=== PATIENT | female | born 2000 | race Hispanic/Latino ===

== ENCOUNTER 2021-03-19 08:59 | Emergency (ER) | payer MEDICAID ==
[~2021-03-19] VITALS: Ht 154.9 cm; Wt 50.8 kg
[2021-03-19] MEDS ORDERED: DIPH1POW20 PO (12:39)
[2021-03-19 12:55] VITALS: BP 125/74
== END 2021-03-19 12:56 | disposition home or self-care (01) ==
LOC: EDH 10:20
DX: J06.9 Acute upper respiratory infection, unspecified (principal); Z20.822 Contact with and (suspected) exposure to COVID-19; Z79.899 Other long term (current) drug therapy
CPT/HCPCS: 87426; 87635; 87804 ×2; 87880; 99283; C9803

== ENCOUNTER 2022-05-13 12:23 | Emergency (ER) | payer MEDICAID ==
[~2022-05-13] VITALS: Ht 154.9 cm; Wt 54.4 kg
[~2022-05-13 12:23] MED LIST: DIPH1POW20 PO
[2022-05-13] MEDS ORDERED: LIDOCAINE HCL 1% 20 ML VIAL INJ SCH (13:00)
[2022-05-13] MEDS ORDERED: IBUPROFEN 600 MG TABLET PO ONE (13:30)
[2022-05-13] MEDS ORDERED: LIDOCAINE HCL 1% 10 ML VIAL ONE (14:42)
[2022-05-13] MEDS ORDERED: DIPH,PERTUSS(ACELL),TET VAC/PF 0.5 ML VIAL IM ONE (15:30)
[2022-05-13] MEDS ORDERED: TETANUS/DIPHTHERIA TOXOID [ADULT] 0.5 ML VIAL IM ONE (15:39)
[2022-05-13 16:05] VITALS: BP 128/71
== END 2022-05-13 15:33 | disposition home or self-care (01) ==
LOC: EDH 12:23
DX: S61.212A Laceration without foreign body of right middle finger without damage to nail, initial encounter (principal); X58.XXXA Exposure to other specified factors, initial encounter; Y93.89 Activity, other specified; Y92.89 Other specified places as the place of occurrence of the external cause; Y99.8 Other external cause status
CPT/HCPCS: 99283; 90714; 73120; 90471; 12001; J3490; 90715

== ENCOUNTER 2022-05-22 12:31 | Emergency (ER) | payer MEDICAID ==
[~2022-05-22] VITALS: Ht 154.9 cm; Wt 54.4 kg
[2022-05-22 13:37] VITALS: BP 122/78
== END 2022-05-22 13:41 | disposition home or self-care (01) ==
LOC: EDH 12:31
DX: S61.212D Laceration without foreign body of right middle finger without damage to nail, subsequent encounter (principal); X58.XXXD Exposure to other specified factors, subsequent encounter

== ENCOUNTER 2022-12-11 21:12 | Emergency (ER) | payer MEDICAID ==
[~2022-12-11] VITALS: Ht 154.9 cm; Wt 54.4 kg
[2022-12-11 23:11] LABS: APPEARANCE,URINE CLEAR (CLEAR); BILIRUBIN,URINE SMALL mg/dL (NEGATIVE); COLOR,URINE YELLOW (YELLOW); GLUCOSE, URINE (UA) NEGATIVE (NEGATIVE); KETONES,URINE 40 mg/dL (NEGATIVE); LEUKOCYTE ESTERASE ,URINE TRACE Leu/uL (NEGATIVE); NITRATE,URINE NEGATIVE (NEGATIVE); OCCULT BLOOD,URINE MODERATE (NEGATIVE); PROTEIN,URINE TRACE mg/dL (NEGATIVE)
[2022-12-11 23:17] LABS: HCG,QUALITATIVE URINE NEGATIVE (NEGATIVE)
[2022-12-11 23:20] LABS: BACTERIA,URINE Rare /HPF (None Seen); WBC,URINE 0-1 /HPF (0-1)
[2022-12-11 23:21] LABS: MUCUS,URINE Rare LPF (None Seen); SQUAMOUS EPITHELIAL CELL,UR Few /HPF (0-2)
[2022-12-12] MEDS ORDERED: LACT20PA6 PO (00:38)
[2022-12-12 00:53] VITALS: BP 110/58
== END 2022-12-12 00:55 | disposition home or self-care (01) ==
LOC: EDH 21:12
DX: B34.9 Viral infection, unspecified (principal); K59.00 Constipation, unspecified; Z20.822 Contact with and (suspected) exposure to COVID-19
CPT/HCPCS: 99284; 74176; 87635; 87880; 87804 ×2; 81001; 81025; C9803

== ENCOUNTER 2024-11-16 13:50 | Emergency (ER) | payer BC, MEDICAID ==
[~2024-11-16] VITALS: Ht 154.9 cm; Wt 54.4 kg
[~2024-11-16 13:50] MED LIST changes: +LACT20PA6 PO
--- NOTE | 2024-11-16 13:57 | ERN ---
ED Note History of Present Illness Stated Complaint: FLU LIKE SYMPTOMS Time Seen by MD: 13:50 Dictation: PATIENT IS A 23-YEAR-OLD FEMALE COMING IN TODAY WITH FLU-LIKE SYMPTOMS TO INCLUDE BODY ACHES, SORE THROAT WITH PAINFUL SWALLOWING, DRY COUGH AND FRONTAL HEADACHE FOR TWO DAYS. NO NAUSEA VOMITING NO DIARRHEA NO LOSS OF TASTE OR SMELL. NO PRIMARY CARE DOCTOR HAS NOT TAKEN ANYTHING PRIOR TO ARRIVAL FOR PAIN Allergies: Coded Allergies: No Known Drug Allergies (Unverified Allergy, Unknown, 03/19/21) Home Meds Active Scripts Lactulose (Kristalose) 20 Gm Packet, 20 GM PO DAILY for 7 Days, #7 PKT Prov:JONA MENDEZ 12/12/22 Diphenhydra/Phenyleph/Acetamin (Theraflu Severe Cold & Cough) 1 Each Powd.pack, 1 EACH PO QID, #20 - Prov:IRVING WHITE 03/19/21 Past Medical History Past Medical History: No Pertinent History Surgical History: None Family History: HTN Social History: Negative, Lives with family History: Not Applicable RN Note Reviewed/Agreed w/PFSH: Yes Review of System Dictation CONSTITUTIONAL: NEGATIVE EXCEPT FOR HPI CHILLS HEAD/FACE: NEGATIVE EXCEPT FOR HPI EENT: NEGATIVE EXCEPT FOR HPI SORE THROAT WITH PAINFUL SWALLOWING RESPIRATORY: NEGATIVE EXCEPT FOR HPI DRY COUGH GASTROINTESTINAL/ABDOMINAL: NEGATIVE EXCEPT FOR HPI GENITOURINARY: NEGATIVE EXCEPT FOR HPI MUSCULOSKELETAL: NEGATIVE EXCEPT FOR HPI INTEGUMENTARY: NEGATIVE EXCEPT FOR HPI NEUROLOGICAL/PSYCH: NEGATIVE EXCEPT FOR HPI HEMATOLOGIC/LYMPHATIC: NEGATIVE EXCEPT FOR HPI ALL SYSTEMS NEGATIVE, EXCEPT NOTED ABOVE. 13 POINT REVIEW OF SYSTEMS ASSESSED AND ALL NEGATIVE EXCEPT FOR ABOVE. Initial Vital Sign VS Vital Signs Date Time Temp Pulse Resp B/P (MAP) Pulse Ox O2 Delivery O2 Flow Rate FiO2 11/16/24 14:00 101.3 108 16 134/83 98 Room Air* 0 21 Physical Exam Dictation VITAL SIGNS REVIEWED GENERAL APPEARANCE: ALERT, ORIENTED X 3, NO ACUTE DISTRESS, WELL DEVELOPED, NOUR ISHED. HEAD AND FACE: NON-TRAUMATIC. EYES: PERRL, PINK CONJUNCTIVAS, EYELID NO TRAUMA, ANTERIOR CHAMBER WITH ARCUS SENILIS. EARS: PINNAS INTACT AND NO SIGNS OF TRAUMA OR ERYTHEMA EAR CANALS CLEAR AND NO DISCHARGE TM NO ERYTHEMA NOSE: CLEAR DISCHARGE, NO BLEEDING. OROPHARYNX: MOUTH NORMAL, TONGUE PINK, PHARYNX CLEAR, MILD PHARYNGEAL ERYTHEMA, TONSILS NO EXUDATES, NO ABSCESSES NOTED, MUCOUS MEMBRANE MOIST NECK: SUPPLE, NON-TENDER, NO THYROMEGALY, NO MASSES, NO JVD, NO BRUITS BREAST:DEFERRED CHEST:NO TENDERNESS, NO CREPITUS, NO PARADOXICAL MOVEMENT, NO RETRACTIONS LUNGS:CLEAR, WELL-VENTILATED, SYMMETRIC, NO RALES, NO WHEEZING, NO RHONCHI, NO STRIDOR, GOOD BREATH SOUNDS BILATERALLY HEART: REGULAR RATE, REGULAR RHYTHM, NO MURMUR, NO GALLOPS VASCULAR: NO PERIPHERAL EDEMA, ABDOMEN: SOFT, POSITIVE BOWEL SOUNDS, NONDISTENDED, NO GUARDING, NONTENDER, NO REBOUND, NO MASSES NO HEPATOMEGALY, NO SPLENOMEGALY, NO MANRIQUEZ'S SIGN, NO HERNIAS. RECTAL: DEFERRED GENITAL: DEFERRED NEUROLOGICAL: NORMAL SPEECH, MOTOR FUNCTION INTACT, SENSORY FUNCTION INTACT MUSCULOSKELETAL: NECK NONTENDER, FULL RANGE OF MOTION, BACK NONTENDER, FULL RANGE OF MOTION, EXTREMITIES: NONTENDER, FULL RANGE OF MOTION SKIN: COLOR PINK, DRY, NO TURGOR, NO RASH, NO LACERATIONS, NO ABRASIONS, NO CONTUSIONS. LYMPHATIC: DEFERRED Results (Laboratory/Radiology) Laboratory/Radiology Laboratory Tests Test 11/16/24 14:00 Influenza Type A Antigen Positive For Type A Influenza Type B Antigen Negative For Type B SARS-CoV-2 Antigen (Rapid) PRESUMPTIVE NEGATIVE Labs Reviewed?: Yes ED Course ED Course Orders Procedure Category Date Status Time Rapid (Group A Strep) LAB 11/16/24 In Process 13:55 Covid19 (Sars Antigen LAB 11/16/24 In Process Rapid) 13:55 Influenza Type A & B, LAB 11/16/24 In Process Rapid 13:55 Acetaminophen 500mg PHA 11/16/24 Complete Tab (Tylenol 500mg T 14:00 Current Medications Medications (Trade) Dose Ordered Sig/Veronique Route PRN Reason Start Time Stop Time Status Last Admin Dose Admin Acetaminophen (TYLenol 500MG TAB) 1,000 mg ONCE ONCE PO 11/16/24 14:00 11/16/24 14:01 DC Vital Signs Date Time Temp Pulse Resp B/P (MAP) Pulse Ox O2 Delivery O2 Flow Rate FiO2 11/16/24 14:00 101.3 108 16 134/83 98 Room Air 0 11/16/24 14:00 101.3 108 16 134/83 98 Room Air* 0 21 Fourteen 50 patient is positive for influenza a, we will be treated with Tamiflu. In addition she will be treated empirically for acute pharyngitis unspecified With antibiotics told no work until cleared by her Medical Decision Making MDM Medical discharge making based on swabs for flu COVID and strep. Strep was canceled Patient is flu a positive We will be treated empirically for acute pharyngitis unspecified with Augmentin Told to stay home and take Tamiflu/Augmentin as directed until gone and increase your fluids DX & DISP Disposition: Discharge Departure Impression: Primary Impression: Influenza A Additional Impressions: Acute pharyngitis, unspecified, Fever Condition: Stable Scripts Amoxicillin/Potassium Clav (Amox Tr-K Clv 875-125 mg Tab) 875 Mg-125 Mg Tablet 1 EACH PO BID for 7 Days, #14 TAB 0 Refills Prov: AMAURI FRENCH NP 11/16/24 Oseltamivir Phosphate (Tamiflu) 75 Mg Cap 75 MG PO BID for 5 Days, #10 CAP Prov: AMAURI FRENCH NP 11/16/24 Additional Instructions: Follow-up with primary care provider in 1 to 2 days. Take medications as directed here in the emergency room. Okay to continue home medications unless otherwise discussed during your visit in the emergency room today. Return to your nearest emergency room if symptoms worsen or if there is no improvement. Call 911 if you need immediate assistance. Take Tylenol or Motrin over-the-c ounter as needed and if no contraindications are present. Increase oral hydration. A wound culture or urine culture was ordered here in the emergency room department please follow-up with primary care provider and advise them to get repeat ports from our facility. If you had any Rocky wrap/splints that were applied here, please do not remove them until you see your primary care or specialty. Take Tamiflu and Augmentin as directed until gone. , increase your water intake. No work until cleared back by your primary care doctor in 2-3 days. Referrals: DOUG ROBIN MD (PCP) Time of Disposition: 14:53 I have reviewed the case, and I agree with, Diagnosis and Plan AMAURI FRENCH NP Nov 16, 2024 13:57
--- NOTE | 2024-11-16 14:00 | NUR ---
SEPSIS CODE DEFERRED BY Benjamin FRENCH NP
[2024-11-16 14:35] LABS: COVID19 (SARS ANTIGEN RAPID) PRESUMPTIVE NEGATIVE (NEGATIVE); INFLUENZA TYPE B Negative For Type B (NEGATIVE)
[2024-11-16 14:38] LABS: INFLUENZA TYPE A Positive For Type A (NEGATIVE)
[2024-11-16] MEDS ORDERED: AMOX1TAB16 PO (14:54)
[2024-11-16] MEDS ORDERED: OSEL75 PO (14:54)
[2024-11-16] MEDS: acetaMINOPHEN 500 MG TABLET PO ONE (15:04)
[2024-11-16 15:06] VITALS: BP 131/83; PULSE 95; RESP 16; TEMP 99; O2SAT 98
[2024-11-16 15:54] VITALS: TEMP 98.9
== END 2024-11-16 15:55 | disposition home or self-care (01) ==
LOC: EDH 13:50
DX: J10.1 Influenza due to other identified influenza virus with other respiratory manifestations (principal); R50.9 Fever, unspecified; Z79.899 Other long term (current) drug therapy; Z20.822 Contact with and (suspected) exposure to COVID-19
CPT/HCPCS: 87426; 87804; 99283